=== PATIENT | male | born 1995 | race Caucasian/White ===

== ENCOUNTER → 2022-12-04 23:51 | Outpatient (CLI) | payer BC, SELFPAY ==
[2022-12-07 07:13] LABS: Neisseria gonorrhoeae, NAA Negative (Negative)
== END ==
LOC: LAB.DROPOF 23:52
PROVIDERS: PCP Nurse Practitioner Family; Visit Provider Nurse Practitioner Family
DX: R30.0 Dysuria (principal)
CPT/HCPCS: 87086; 87491; 87591